=== PATIENT | male | born 1990 | race Caucasian/White ===

== ENCOUNTER 2023-12-11 11:55 | Emergency (ER) | payer BC ==
[2023-12-11] MEDS: Orphenadrine 60 MG/2 ML Inj IM ONE (12:27)
[2023-12-11] MEDS: Ketorolac 30 MG/ML SDV IM ONE (12:27)
[2023-12-11] MEDS: Lidocaine 4% 1 each Patch TOP STA (12:28)
== END 2023-12-11 14:14 | disposition home or self-care (01) ==
LOC: MW.ED 11:55
DX: M25.512 Pain in left shoulder (principal); Z75.8 Other problems related to medical facilities and other health care
CPT/HCPCS: 73030; 96372; 99283; A9270; J1885; J2360